=== PATIENT | male | born 1940 | race Caucasian/White ===

== ENCOUNTER 2019-11-21 17:23 | Emergency (ER) | payer MEDICARE, OTHER ==
[~2019-11-21] VITALS: Ht 182.9 cm; Wt 104.5 kg
[~2019-11-21 17:23] MED LIST: NO HOME MEDS
[2019-11-21] MEDS ORDERED: magnesium citrate 296ml oral solution PO ONE (18:05)
[2019-11-21] MEDS ORDERED: docusate sodium 100mg/10ml UD cup PO STA (18:05)
[2019-11-21 19:45] VITALS: BP 119/51
[2019-11-21] MEDS ORDERED: DOCU-148 PO (21:43)
[2019-11-21] MEDS ORDERED: POLY17PO10 PO (21:43)
== END 2019-11-21 22:27 | disposition home or self-care (01) ==
LOC: ER 17:24
DX: K59.00 Constipation, unspecified (principal); R10.84 Generalized abdominal pain; I10 Essential (primary) hypertension; Z98.890 Other specified postprocedural states; Z79.899 Other long term (current) drug therapy
CPT/HCPCS: 99284

== ENCOUNTER 2019-12-19 05:47 | Day surgery (SDC) | payer MEDICARE, OTHER ==
[2019-12-18 12:07] LABS: BASOPHILS % (AUTO) 0.3 % (0-1); EOSINOPHILS % (AUTO) 0.8 % (0-6); HEMATOCRIT 43.9 % (42.0-52.0); HEMOGLOBIN 15.1 g/dl (14.0-17.9); LYMPHOCYTES # (AUTO) 1.6 X10'3 (1.1-4.8); LYMPHOCYTES % (AUTO) 27.3 % (21-51); MEAN CORPUSCULAR HEMOGLOBIN 33.8 PG (27.0-31.0); MEAN CORPUSCULAR HGB CONC 34.5 g/dL (33.0-36.5); MEAN CORPUSCULAR VOLUME 98.2 FL (78-98); MEAN PLATELET VOLUME 8.7 FL (7.4-10.4); MONOCYTES # (AUTO) 0.4 X10'3 (0-0.9); MONOCYTES % (AUTO) 6.4 % (2-12); NEUTROPHILS # (AUTO) 3.9 X10'3 (1.8-7.7); NEUTROPHILS % (AUTO) 65.2 % (42-75); PLATELET COUNT 150 X10'3 (140-440); RED BLOOD COUNT 4.47 X10'6 (4.70-6.10); RED CELL DISTRIBUTION WIDTH 13.9 % (11.5-14.5)
[2019-12-18 12:20] LABS: PARTIAL THROMBOPLASTIN TIME 29 SECONDS (22-32)
[2019-12-18 12:29] LABS: ALBUMIN 3.2 G/DL (3.4-5.0); ANION GAP 6 (8-16); BLOOD UREA NITROGEN 11 MG/DL (7-18); BUN/CREATININE RATIO 11.2 (5.4-32.0); CALCIUM 8.2 MG/DL (8.5-10.1); CHLORIDE 105 MMOL/L (99-107); CREATININE 0.98 MG/DL (0.60-1.10); GLUCOSE 96 MG/DL (70-104); POTASSIUM 3.1 MMOL/L (3.5-5.1); SODIUM 143 MMOL/L (135-145); TOTAL CARBON DIOXIDE 31.7 MMOL/L (24-32); eGFR 74 ML/MIN
[~2019-12-19] VITALS: Ht 182.9 cm; Wt 98.7 kg
[2019-12-19] VITALS (20 sets, daily range): BP systolic 58–140; BP diastolic 24–75
[~2019-12-19 05:47] MED LIST changes: +ASPI-10 PO; +ATOR40TA72 PO; +CLOP75TA35 PO; +DOCU100C40 PO; +FLO0.1T PO; +MIDO5TAB4 PO; -NO HOME MEDS
[2019-12-19] MEDS ORDERED: LORazepam 0.5 MG tablet PO PRN (06:15)
[2019-12-19] MEDS ORDERED: LIDOcaine/PRILOcaine 5gm cream TP ONE (06:15)
[2019-12-19] MEDS ORDERED: diphenhydrAMINE 25mg capsule PO PRN (06:15)
[2019-12-19] MEDS ORDERED: normal saline 1,000 ML IV SCH (06:15)
[2019-12-19] MEDS ORDERED: FLUD0.1T PO (06:26)
[2019-12-19] MEDS ORDERED: MIDO5TAB4 PO (06:26)
[2019-12-19] MEDS ORDERED: iohexol 350MG/ML 100ml bottle IV ONE (07:40)
[2019-12-19] MEDS ORDERED: heparin 1,000unit/ml 10ml vial 10 ML ONE (07:40)
[2019-12-19] MEDS ORDERED: nitroGLYCERIN-Tridil 50MG/D5W 250 ML IV ONE (07:40)
[2019-12-19] MEDS ORDERED: iohexol 350 MG/ML 50ML vial IV ONE (07:40)
[2019-12-19] MEDS ORDERED: midazolam 2 mg/2 ml injection ONE (07:40)
[2019-12-19] MEDS ORDERED: LIDOcaine 1% (10mg/ml)w/preservative injection 20ml MDV ONE (07:40)
[2019-12-19] MEDS ORDERED: verapamil 2.5 mg/ml inj IV ONE (07:40)
[2019-12-19] MEDS ORDERED: fentaNYL/PF 50MCG/1 ML 2ML syringe ONE (07:40)
[2019-12-19] MEDS ORDERED: DOPamine 400mg/D5W 250ml 250 ML IV ONE (08:25)
--- NOTE | 2019-12-19 09:30 | NUR ---
Pt returned from [employer] via [employer], awake & oriented to baseline. Dopamine drip infusing at 5mcg/kg/hr, NS at 150mL/hr per Dr. Toscano's orders. Written orders to titrate dopamine down if B/P stable beginning at 1100.
--- NOTE | 2019-12-19 11:30 | NUR ---
Dopamine gtt decreased from 5mcg/kg/hr to 1.5mcg/kg/hr.
--- NOTE | 2019-12-19 11:45 | NUR ---
Dopamine gtt increased from 1.5mcg/kg/hr to 2.5mcg/kg/hr due to hypotension. Will continue to closely monitor.
--- NOTE | 2019-12-19 13:00 | NUR ---
Dopamine gtt decreased from 2.5mcg/kg/hr to 1.5mcg/kg/hr.
--- NOTE | 2019-12-19 14:00 | NUR ---
Dopamine gtt stopped.
== END 2019-12-19 15:00 | disposition home or self-care (01) ==
LOC: SSTAY O 05:47
PROVIDERS: ATTEND Internal Medicine Cardiovascular Disease
DX: R06.02 Shortness of breath (principal); R53.83 Other fatigue; I25.10 Atherosclerotic heart disease of native coronary artery without angina pectoris; I42.0 Dilated cardiomyopathy; I10 Essential (primary) hypertension; E78.5 Hyperlipidemia, unspecified; I95.1 Orthostatic hypotension; K59.09 Other constipation; I65.23 Occlusion and stenosis of bilateral carotid arteries; Z86.73 Personal history of transient ischemic attack (TIA), and cerebral infarction without residual deficits; Z87.891 Personal history of nicotine dependence
CPT/HCPCS: 36415; 80048; 85025; 85610; 85730; 93005; 93460; 99152; 99153; C1769; C1894; J1265; J1644; J2001; J2250; J3010; J7030; Q0163; Q9967; A4620; A5120; A6258; C1760; J3490

== ENCOUNTER 2020-04-13 06:43 | Emergency (ER) | payer MEDICARE, OTHER ==
[~2020-04-13] VITALS: Ht 182.9 cm; Wt 97.7 kg
[~2020-04-13 06:43] MED LIST changes: -CLOP75TA35 PO; -FLO0.1T PO; +FLUD0.1T PO
--- NOTE | 2020-04-13 08:15 | NUR ---
TC FROM FOR CONDITION REPORT.
--- NOTE | 2020-04-13 08:21 | NUR ---
1/2 of the mineral oil instilled, pt started complaining of discomfort. bedside commode and tissues at bedside, pt given call light for assistance
[2020-04-13] MEDS ORDERED: magnesium citrate 296ml oral solution PO ONE (08:45)
[2020-04-13] MEDS ORDERED: POLY17PO10 PO (09:58)
[2020-04-13] MEDS ORDERED: MAGN296S70 PO (09:58)
[2020-04-13 10:17] VITALS: BP 105/56
[2020-04-13] MEDS ORDERED: CLOP75TA35 PO (14:09)
[2020-04-13] MEDS ORDERED: CARV3.122 PO (14:09)
[2020-04-13] MEDS ORDERED: LISI-604 PO (14:09)
== END 2020-04-13 10:19 | disposition home or self-care (01) ==
LOC: ER 06:44
DX: K56.41 Fecal impaction (principal); I50.9 Heart failure, unspecified; I11.0 Hypertensive heart disease with heart failure; Z86.73 Personal history of transient ischemic attack (TIA), and cerebral infarction without residual deficits; Z98.890 Other specified postprocedural states; Z72.89 Other problems related to lifestyle; Z79.899 Other long term (current) drug therapy
CPT/HCPCS: 99283; 99284

== ENCOUNTER 2020-04-13 11:58 | Emergency (ER) | payer MEDICARE, OTHER ==
[~2020-04-13] VITALS: Ht 182.9 cm; Wt 97.7 kg
[~2020-04-13 11:58] MED LIST changes: +MAGN296S70 PO; +POLY17PO10 PO
[2020-04-13] MEDS ORDERED: normal saline 1000ML IV soln IVB ONE (12:15)
[2020-04-13 12:36] LABS: BASOPHILS % (AUTO) 0.3 % (0-1); EOSINOPHILS % (AUTO) 0.1 % (0-6); HEMATOCRIT 42.8 % (42.0-52.0); HEMOGLOBIN 14.9 g/dl (14.0-17.9); LYMPHOCYTES # (AUTO) 1.5 X10'3 (1.1-4.8); LYMPHOCYTES % (AUTO) 11.3 % (21-51); MEAN CORPUSCULAR HEMOGLOBIN 34.3 PG (27.0-31.0); MEAN CORPUSCULAR HGB CONC 34.7 g/dL (33.0-36.5); MEAN CORPUSCULAR VOLUME 98.8 FL (78-98); MEAN PLATELET VOLUME 9.6 FL (7.4-10.4); MONOCYTES # (AUTO) 0.8 X10'3 (0-0.9); MONOCYTES % (AUTO) 5.5 % (2-12); NEUTROPHILS # (AUTO) 11.3 X10'3 (1.8-7.7); NEUTROPHILS % (AUTO) 82.8 % (42-75); PLATELET COUNT 150 X10'3 (140-440); RED BLOOD COUNT 4.34 X10'6 (4.70-6.10); WHITE BLOOD COUNT 13.6 X10'3 (4.5-11.0)
[2020-04-13 13:02] LABS: ALANINE AMINOTRANSFERASE 17 U/L (12-78); ALBUMIN 3.5 G/DL (3.4-5.0); ALBUMIN/GLOBULIN RATIO 1.1 (1.1-1.5); ALKALINE PHOSPHATASE 72 IU/L (46-116); ANION GAP 6 (8-16); ASPARTATE AMINO TRANSFERASE 21 U/L (10-37); BILIRUBIN,TOTAL 2.4 MG/DL (0.1-1.0); BLOOD UREA NITROGEN 19 MG/DL (7-18); BUN/CREATININE RATIO 14.3 (5.4-32.0); CALCIUM 8.8 MG/DL (8.5-10.1); CHLORIDE 105 MMOL/L (99-107); CREATININE 1.33 MG/DL (0.60-1.10); GLUCOSE 131 MG/DL (70-104); SODIUM 144 MMOL/L (135-145); TOTAL CARBON DIOXIDE 32.7 MMOL/L (24-32); TOTAL PROTEIN 6.6 G/DL (6.4-8.2); eGFR 52 ML/MIN
[2020-04-13 13:04] LABS: POTASSIUM 2.5 MMOL/L (3.5-5.1)
[2020-04-13] MEDS ORDERED: potassium Cl 20 mEq SR tablet PO STA (13:44)
[2020-04-13] MEDS ORDERED: potassium Cl 10 mEq/100mL bag IV ONE (13:45)
[2020-04-13 14:00] VITALS: BP 117/59
[2020-04-13] MEDS ORDERED: CARV3.122 PO (14:09)
[2020-04-13] MEDS ORDERED: CLOP75TA35 PO (14:09)
[2020-04-13] MEDS ORDERED: LISI-604 PO (14:09)
--- NOTE | 2020-04-13 14:40 | NUR ---
Pt pulled IV out and tried to get up to walk when RN was not in room. Per MD, only give PO K at this time and wait on putting in new IV.
--- NOTE | 2020-04-13 15:15 | NUR ---
Home health referral sent to [facility], waiting for acceptance
--- NOTE | 2020-04-13 16:02 | NUR ---
[facility] has accepted patient for home health services, spoke with patient sister Nhung and notified that [facility] would be contacting in am to set up services
== END 2020-04-13 15:42 | disposition home or self-care (01) ==
LOC: ER 11:58
DX: I50.9 Heart failure, unspecified (principal); I95.89 Other hypotension; E87.6 Hypokalemia; E86.0 Dehydration; R55 Syncope and collapse; K56.41 Fecal impaction; Z86.73 Personal history of transient ischemic attack (TIA), and cerebral infarction without residual deficits; Z98.890 Other specified postprocedural states; Z79.899 Other long term (current) drug therapy
CPT/HCPCS: 36415; 71045; 80053; 82948; 83880; 84484; 85025; 93005; 99285; J7030